=== PATIENT | female | born 1970 | race Caucasian/White ===

== ENCOUNTER 2019-05-12 23:17 | Emergency (ER) | payer MEDICAID, SELFPAY ==
[~2019-05-12 23:17] MED LIST: Iopamidol 370 76% 100 ML VIAL ONE
[2019-05-12 23:36] LABS: #Basophils 0.1 thou/uL (0.0-0.2); #Eosinphils 0.3 thou/uL (0.0-0.7); #Lymphocytes 1.7 thou/uL (1.20-3.40); #Monocytes 0.5 thou/uL (0.11-0.59); #Neutrophils 4.9 thou/uL (1.40-6.50); %Basophils 1.1 % (0.0-1.0); %Eosinophils 3.9 % (0.0-10.0); %Lymphocytes 23.1 % (21.0-51.0); %Monocytes 6.8 % (0.0-10.0); %Neutrophils 65.3 % (42.0-75.0); Hemoglobin 12.2 g/dL (12.0-16.0); Mean Corpuscular Hemoglobin 25.4 pg (27.0-31.0); Mean Corpuscular Volume 82.2 fL (78.0-98.0); Mean Platelet Volume 6.7 fL (7.4-10.4); Platelet Count 276 thou/uL (130-400); RBC Distribution Width 14.6 % (11.5-14.5); Red Blood Cell (RBC) Count 4.79 mill/uL (4.20-5.40); White Blood Cell (WBC) Count 7.5 thou/uL (4.8-10.8)
[2019-05-12 23:43] LABS: PTT 27.2 SEC (22.9-36.1); Prothrombin Time 13.3 SEC (12.0-14.7)
[2019-05-12 23:49] LABS: Anion Gap 15 mmol/L (10-20); BUN (Urea Nitrogen) 7 mg/dL (7.0-18.7); Calc. Creatinine Clearance 0 mL/min (70-130); Carbon Dioxide 26 mmol/L (22-29); Chloride 102 mmol/L (98-107); Estimated GFR-MDRD Greater than 90; Potassium 4.5 mmol/L (3.5-5.1); Sodium 138 mmol/L (136-145)
[2019-05-12 23:51] LABS: Glucose 183 mg/dL (70-105)
[2019-05-12 23:59] LABS: ALT (SGPT) 15 U/L (8-55); AST (SGOT) 13 U/L (5-34); Albumin 3.6 g/dL (3.5-5.0); Alkaline Phosphatase 64 U/L (40-110); Bilirubin, Direct 0.2 mg/dL (0.1-0.3); Bilirubin, Total 0.3 mg/dL (0.2-1.2); Protein, Total 7.6 g/dL (6.0-8.3)
[2019-05-13] LABS: Critical Call Chem-Lactate NOT CALLED
[2019-05-13 00:01] LABS: Critical Call Chem Troponin I NOT CALLED
[2019-05-13 00:25] LABS: Bilirubin Negative (Negative); Blood, Urine Trace (Negative); Glucose, Urine (Dipstick) Negative (Negative); Leukocyte Moderate (Negative); Nitrite Positive (Negative); Protein, Urine (Dipstick) Negative (Neg-Trace); Urobilinogen 0.2 mg/dL (Less than 2)
[2019-05-13 00:26] LABS: Clarity Hazy (Clear)
[2019-05-13] MEDS ORDERED: Piperacillin/Tazobactam 4.5 GM VIAL ONE (00:35)
[2019-05-13] MEDS ORDERED: Sodium Chloride 0.9% 100 ML ONE (00:35)
[2019-05-13 00:37] LABS: Bacteria/HPF 3+ HPF (None Seen); RBC/HPF 0-3 HPF (0-3); Squamous Epithelial 0-3 HPF (0-3); Transitional Epithelial 0-3 HPF (None Seen)
--- NOTE | 2019-05-13 07:53 | RAD ---
PORTABLE CHEST: DATE: 05/13/2019. FINDINGS: An AP portable film at 0037 is compared with a 04/11/2019 study from [facility]. The heart is mildly enlarged, but there is no congestive change, pleural effusion, or focal pulmonary infiltrate. The lungs are clear. The trachea does deviate slightly to the left of the thoracic inl et. The possibility of right lobe thyroid pathology is raised. IMPRESSION: 1. Slight cardiomegaly. 2. No acute thoracic findings. 3. Slight deviation of the trachea. See above. CODE T POS: HOME
--- NOTE | 2019-05-13 08:44 | CT ---
PRELIMINARY REPORT/[facility]/EMERGENCY AFTER HOURS PROCEDURE: Receipt of this report by the clinical staff was confirmed with SIMIN LAGUNAS DO by Chase Braun on May 13, 2019 00:40:00 [employer]. Addendum electronically signed by Nikki Braun on May 13, 2019 12:41:35 AM CALLIOPE [employer]ER EXAM: CTA Head and Neck with Intravenous Contrast. CLINICAL HISTORY: AMS, DIFFICULTY SPEAKING, R/O STROKE TECHNIQUE: Axial CTA images of the head and neck performed with intravenous contrast. MIP reconstructed images w ere created and reviewed. Note: Per PQRS, the description of internal carotid artery percent stenosis, including 0 percent or n ormal exam, is based on [place] Symptomatic Carotid Endarterectomy Trial (NASCET) criteria. CONTRAST: With; ISOVUE 370 100MLS COMPARISON: None provided. FINDINGS: CTA NECK: COMMON CAROTID ARTERIES No significant stenosis. No dissection or occlusion. INTERNAL CAROTID ARTERIES No stenosis by NASCET criteria. No dissection or occlusion. VERTEBRAL ARTERIES No significant stenosis. No dissection or occlusion. CTA HEAD: ANTERIOR CEREBRAL ARTERIES No significant stenosis. No occlusion. No aneurysm. MIDDLE CEREBRAL ARTERIES No significant stenosis. No occlusion. No aneurysm. POSTERIOR CEREBRAL ARTERIES No significant stenosis. No occlusion. No aneurysm. BASILAR ARTERY No significant stenosis. No occlusion. No aneurysm. OTHER: SOFT TISSUES There is a partially visualized soft tissue density in the mediastinum, adjacent to the aortic arch, likely represent mediastinal lymphadenopathy. Bilateral thyroid glands are not enlarged. BONES No acute osseous abnormality. IMPRESSION: There is a no hemodynamic significant stenosis, aneurysm, or dissection in the head and neck. There is a partially visualized soft tissue density in the mediastinum, adjacent to the aortic arch, likely represent mediastinal lymphadenopathy. Bilateral thyroid glands are not enlarged. ELECTRONICALLY SIGNED BY: Nuzhat Macias MD May 13, 2019 12:37:10 AM [employer]ER This report is intended for review by the ordering physician only, in accordance of law. If you recei ve this report in error, please call [facility] at [phone]. This report was discussed with Dr. Simin Lagunas DO by Nikki Braun on May 12, 2019 23:51:00 CS T. Addendum electronically signed by Nikki Braun on May 12, 2019 11:51:21 PM CALLIOPE PLAYER EXAM: CT Head Without Intravenous Contrast. CLINICAL HISTORY: AMS, STROKE ALERT TECHNIQUE: Axial computed tomography images of the head/brain without intravenous contrast. COMPARISON: None provided. FINDINGS: BRAIN: No acute intraparenchymal hemorrhage. No mass lesion. No CT evidence for acute territorial infarct. N o midline shift or extra-axial collection. VENTRICLES: No hydrocephalus. ORBITS: The orbits are unremarkable. SINUSES AND MASTOIDS: The paranasal sinuses and mastoid air cells are clear. SOFT TISSUES: No significant facial or scalp soft tissue swelling evident. No radiopaque foreign body is seen. BONES: No acute skull fracture. IMPRESSION: No acute intracranial abnormality. ELECTRONICALLY SIGNED BY: Nuzhat Macias MD May 12, 2019 11:47:25 PM [employer]ER This report is intended for review by the ordering physician only, in accordance of law. If you recei ve this report in error, please call [facility] at [phone]. FINAL REPORT CT ANGIO OF THE HEAD AND NECK: DATE: 05/13/2019. FINDINGS: CT angio of the head and neck on this patient with mental status changes and difficulty speaking. Th ere was no associated CT of the brain. Reconstructed images after a bolus of IV contrast were obtain ed. CTA NECK: CT angio of the neck showed no evidence of significant stenosis in the common or internal carotid art eries, or around the bifurcation. The vertebral arteries fill normally with no obstruction. The bas ilar artery shows no stenosis or aneurysm. The anterior cerebral, middle cerebral, and posterior cer ebral arteries filled normally. There was no sign of thrombus or aneurysm. Therefore, there was no evidence of significant stenosis or aneurysm in the head or neck region scan. The patient's thyroid gland is quite large and very inhomogeneous. There may be multiple nodules wit hin it. Ultrasound would be needed for best assessment. There also may be calcifications within the gland. The trachea deviates towards the right as it enters the thorax, but it appears to be mainly the aortic arch that causes it to do so. There is some soft tissue density around the aortic arch, h owever, that could be adenopathy. Further images of the chest would be needed to assess this. The l elisabeth markings in the left lung apex were a bit coarser than the right. IMPRESSION: 1. No evidence of significant stenosis or aneurysm involving the great vessels of the neck and major cerebral arteries. 2. Very large inhomogeneous thyroid gland that needs further investigation. 3. Questionable soft tissue density on the last few slices in the upper mediastinum. CT angiogram report in agreement with preliminary reading by [facility]. This report is not in agreement with the comments on the thyroid gland found in that report. There needs to be further fo llowup regarding her thyroid gland. CODE T POS: HOME
--- NOTE | 2019-05-13 15:10 | CT ---
PRELIMINARY REPORT/[facility]/EMERGENCY AFTER HOURS PROCEDURE: EXAM: CT Head Without Intravenous Contrast. CLINICAL HISTORY: AMS, STROKE ALERT TECHNIQUE: Axial computed tomography images of the head/brain without intravenous contrast. COMPARISON: None provided. FINDINGS: BRAIN: No acute intraparenchymal hemorrhage. No mass lesion. No CT evidence for acute territorial inf arct. No midline shift or extra-axial collection. VENTRICLES: No hydrocephalus. ORBITS: The orbits are unremarkable. SINUSES AND MASTOIDS: The paranasal sinuses and mastoid air cells are clear. SOFT TISSUES: No significant facial or scalp soft tissue swelling evident. No radiopaque foreign body is seen. BONES: No acute skull fracture. IMPRESSION: No acute intracranial abnormality. ELECTRONICALLY SIGNED BY: Nuzhat Macias MD May 12, 2019 11:47:25 PM GYNAECOLOGICAL ONCOLOGIST This report is intended for review by the ordering physician only, in accordance of law. If you recei ve this report in error, please call [facility] at [phone]. FINAL REPORT CT BRAIN WITHOUT CONTRAST: Date: 05/12/[address] shows normal sized ventricles with no shift. No intracranial bleeding, mass, or sign of acute stroke was found. There is good clemons-white distinction. No edema seen. Skull appears normal , as do the visible paranasal sinuses. IMPRESSION: No acute intracranial findings. Report in agreement with preliminary reading by [facility]. POS: HOME
== END 2019-05-13 00:50 | disposition short-term general hospital (02) ==
LOC: BURERS 23:17
DX: R41.82 Altered mental status, unspecified (principal); R47.81 Slurred speech; R53.1 Weakness; E11.9 Type 2 diabetes mellitus without complications; I10 Essential (primary) hypertension; M19.90 Unspecified osteoarthritis, unspecified site; M06.9 Rheumatoid arthritis, unspecified; G43.909 Migraine, unspecified, not intractable, without status migrainosus; J45.909 Unspecified asthma, uncomplicated; M79.7 Fibromyalgia; F32.9 Major depressive disorder, single episode, unspecified; Z79.4 Long term (current) use of insulin; Z79.899 Other long term (current) drug therapy
CPT/HCPCS: 36416; 51702; 70450; 70496; 70498; 71045; 80048; 80076; 81003; 81015; 82550; 83605; 84443; 84484; 85025; 85610; 85730; 87077; 87086; 87186; 93005; 94760; 96374; J2543; J3490; Q9967

== ENCOUNTER 2019-05-27 15:25 | Emergency (ER) | payer MEDICAID ==
[2019-05-27] MEDS ORDERED: Prochlorperazine 10 MG/2 ML VIAL ONE ×2 (16:03→16:06)
[2019-05-27] MEDS ORDERED: Ibuprofen 800 MG TAB ONE (16:06)
== END 2019-05-27 18:10 | disposition home or self-care (01) ==
LOC: BURERS 15:25
DX: R51 Headache (principal); K02.9 Dental caries, unspecified; I10 Essential (primary) hypertension; E11.9 Type 2 diabetes mellitus without complications; M79.7 Fibromyalgia; M06.9 Rheumatoid arthritis, unspecified; J45.909 Unspecified asthma, uncomplicated; E04.9 Nontoxic goiter, unspecified; F32.9 Major depressive disorder, single episode, unspecified; Z79.4 Long term (current) use of insulin; Z79.899 Other long term (current) drug therapy
CPT/HCPCS: 96372; 99283; J0780